=== PATIENT | male | born 1965 | race Caucasian/White ===

== ENCOUNTER 2017-06-07 17:31 | Observation (INO) ==
--- NOTE | 2017-06-07 19:20 | Internal Med History&Physical ---
Date of Encounter: 06/07/17 Time of Encounter: 19:17 Internal Medicine - H&P: HPI Chief complaint: chest pain Plans for Post Hospital Care: Home History of present illness: Mr. Lazo is a 51 year old male Patient with history of COPD, obesity, high cholesterol, smoking history, family history of CAD father had CA age of 45 and so his brother. Patient seen at [facility] due to recurrent chest pain for several months but has developed more severe chest pain since yesterday describes as pressure and tightness associated with nausea and diaphoresis and shortness of breath radiating to his jaw. Get worse with exertion and get better with rest he was then transferred here for further evaluation EKG troponin so far is unremarkable. Past Med Surg Social Fam HX - Past Medical History Medical history: COPD, hyperlipidemia Psychiatric history: no psych history, anxiety, panic disorder - Past Surgical History Surgical History: orthopedic, other (Knee surgery), other (Exploratory laparoscopy) - Social History Smoking Status: Current every day smoker Smokeless Tobacco Status: No Alcohol use: none Drug use: none Internal Medicine - H&P: Meds Fenofibrate 1 tab PO DAILY 05/20/16 [History] Guaifenesin [Mucinex] 1 cap PO BID 05/20/16 [History] Percocet 5/325 MG 1 tab PO QID 05/20/16 [History] Simvastatin 1 tab PO DAILY 05/20/16 [History] Xanax 2 mg PO QID 05/20/16 [History] Albuterol Sulfate [Albuterol Inhaler] 2 puff IH Q6HR PRN #1 [email or web address] 05/21/16 [Rx] Omeprazole [PriLOSEC] 20 mg PO DAILY 06/07/17 [History] 3 Allergy/AdvReac Type Severity Reaction Status Date / Time codeine Allergy Rash Verified 05/20/16 22:05 [From Tylenol-Codeine #3] All Systems PM: A 10-system review of systems was performed and is negative for pertinent findings except as documented above in the HPI. - Head Head exam: Present: atraumatic, normocephalic - Eye Eye exam: Present: PERRL, conjuntiva pink, sclera anicteric Pupils: Present: PERRL - Neck Neck exam general surgery: Present: supple, trachea midline. Absent: lymphadenopathy - Respiratory Respiratory exam: Present: CTAB. Absent: accessory muscle use, rales, rhonchi, wheezes - Cardiovascular Cardiovascular exam: Present: RRR, +S1, +S2. Absent: diastolic murmur, gallop, rubs, systolic murmur - GI/Abdominal GI/Abdominal exam: Present: normal bowel sounds, soft, no peritoneal signs. Absent: distended, tenderness - Extremities Exam Extremities exam: Present: warm, radial pulses palpable and symmetrical. Absent : calf tenderness, cyanotic, pedal edema - Neurological Exam Neurological exam: Present: CN II-XII intact, oriented X3, no focal deficits. Absent: pronater drift, facial droop, speech deficit - Skin Skin exam: Present: dry, intact - Assessment and plan (1) HTN (hypertension) Current Visit: Yes Status: Chronic Assessment and plan: Chronic resume home medication Qualifiers: Hypertension type: essential hypertension Qualified Code(s): I10 - Essential (primary) hypertension (2) COPD (chronic obstructive pulmonary disease) Current Visit: Yes Status: Chronic Assessment and plan: Chronic no active wheezing Qualifiers: COPD type: emphysema Emphysema type: unspecified Qualified Code(s): J43.9 - Emphysema, unspecified (3) Smoking Current Visit: Yes Status: Chronic (4) Hyperlipidemia Current Visit: Yes Status: Chronic Assessment and plan: Chronic resume home medication Qualifiers: Hyperlipidemia type: pure hypercholesterolemia Qualified Code(s): E78.00 - Pure hypercholesterolemia, unspecified; E78.0 - Pure hypercholesterolemia (5) Chest pain Current Visit: No Status: Acute Assessment and plan: Chest pain the patient with multiple risk factors obesity high cholesterol smoking hypertension and family history of CAD chest pain is very typical of cardiac chest pain need further cardiac evaluation with trend troponin is negative iwill scheduled for stress test tomorrow 2-D echo Qualifiers: Chest pain type: precordial pain Qualified Code(s): R07.2 - Precordial pain - Time Spent With Patient Total time spent is greater than 50% in coordination of care (as documented) at patient's floor/unit and/or counseling patient:
[2017-06-07] MEDS ORDERED: traMADol 50 MG TABLET PO PRN (19:23)
[2017-06-07] MEDS ORDERED: Acetaminophen 325 MG TABLET PO PRN (19:23)
[2017-06-07] MEDS ORDERED: Naloxone 0.4 MG/ML INJ IVP PRN (19:23)
[2017-06-07] MEDS: *HR* OxyCODONE/APAP 5/325 TABLET PO PRN (20:12)
[2017-06-07] MEDS: ALPRAZolam 1 MG TABLET PO PRN ×2 (20:13→22:38)
[2017-06-07] MEDS ORDERED: Gabapentin 300 MG CAPSULE PO SCH (22:30)
[2017-06-08] MEDS ORDERED: Ondansetron 4 MG/2 ML VIAL IVP PRN (00:36)
[2017-06-08 01:48] LABS: Alanine Aminotransferase 9 Units/L (7-52); Albumin 3.7 g/dL (3.5-5.7); Albumin/Globulin Ratio 1.5 (1.1-2.2); Alkaline Phosphatase 54 Units/L (34-104); Aspartate Amino Transferase 9 Units/L (13-39); BUN/Creatinine Ratio 13 (6-26); Bilirubin,Total 0.2 mg/dL (0.3-1.0); Blood Urea Nitrogen 19 mg/dL (6-20); Calcium 8.7 mg/dL (8.6-10.3); Carbon Dioxide 27 mEq/L (23-29); Chloride 109 mEq/L (98-107); Chol/HDL Ratio 7.8 (0-4.9); Cholesterol 187 mg/dL (< 200); Globulin 2.4 g/dL (2.4-3.5); Glucose 114 mg/dL (70-105); HDL Cholesterol 24 mg/dL (40-59); Magnesium 2.2 mg/dL (1.6-2.6); Osmolality,Calculated 295 (280-300); Potassium 3.7 mEq/L (3.5-5.1); Sodium 141 mEq/L (136-145); Total Protein 6.1 g/dL (6.4-8.9); Triglycerides 458 mg/dL (< 150); eGFR For African Americans > 60 (> 60); eGFR For Non-African Americans 52 (> 60)
[2017-06-08] MEDS: *HR* OxyCODONE/APAP 5/325 TABLET PO PRN (02:19)
[2017-06-08 03:16] VITALS: BP 109/72
[2017-06-08] MEDS: ALPRAZolam 1 MG TABLET PO PRN (06:12)
[2017-06-08] MEDS ORDERED: Regadenoson 0.4 MG/5 ML SYRINGE IVP ONE (06:41)
[2017-06-08] MEDS ORDERED: Fluticasone Propionate Nasal 50 MCG/SPRAY BOTTLE NS SCH (09:00)
[2017-06-08] MEDS ORDERED: Fenofibrate 54 MG TABLET PO SCH (09:00)
== END 2017-06-08 07:10 | disposition left against medical advice (07) ==
LOC: 3BNU
PROVIDERS: ADMIT Internal Medicine Cardiovascular Disease; ATTEND Internal Medicine Cardiovascular Disease